=== PATIENT | male | born 1990 | race Caucasian/White ===

== ENCOUNTER 2021-04-30 20:18 | Emergency (ER) | payer BC ==
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
== END 2021-04-30 22:23 | disposition home or self-care (01) ==
LOC: JP.ED 20:18
DX: T75.4XXA Electrocution, initial encounter (principal)
CPT/HCPCS: 36415; 80053; 81001; 83605; 84484; 85025; 93005; 99283-25